=== PATIENT | female | born 1955 | race Caucasian/White ===

== ENCOUNTER 2019-11-30 11:00 | Outpatient (CLI) | payer OTHER, SELFPAY ==
--- NOTE | 2019-11-30 11:08 | ECG_ITS ---
Measurements Intervals [place] Rate: 67 P: 72 SD: 143 QRS: 35 QRSD: 93 T: 33 QT: 371 QTc: 394 Interpretive Statements SINUS RHYTHM WITH SINUS ARRHYTHMIA NORMAL ECG Electronically Signed On 11-30-2019 13:49:05 TECHNICAL OPERATIONS SPECIALIST by Yg Hardy D.O.
== END 2019-11-30 11:01 | disposition home or self-care (01) ==
LOC: ANHCARD 11:02
PROVIDERS: PCP Internal Medicine; Visit Provider Nurse Practitioner
DX: R07.9 Chest pain, unspecified (principal)
CPT/HCPCS: 93005

== ENCOUNTER 2019-12-09 10:11 | Outpatient (CLI) | payer OTHER, SELFPAY ==
--- NOTE | 2019-12-09 10:35 | EST_ITS ---
Patient Info Name: Georgina Sutton Age: 63 years : 1955 Gender: Female Ht: 66 in Wt: 197 lbs BSA: 2.07 m2 Exam Date: 12/09/2019 10:44 AM Exam Location: [facility] ([place] Stress Patient Status: Outpatient Admit Date: 12/09/2019 Staff Ordering Physician: Yareli Gallardo NP Attending Provider: Yareli Gallardo NP Exercise Technologist: Keyanna Rizzo CT Nurse: Dianna Henderson, ANP, ACNP- Exam Type: CA stress test treadmill Study Info Indications R07.9 - Chest pain, unspecified A treadmill exercise stress test was performed. Summary 1. [address] depression in inferolateral leads which persisted for several minutes into recovery which is consistent with ischemia. 2. No exercise-induced chest pain. 3. Hypertensive blood pressure response to exercise. 4. Decreased exercise tolerance. 5. 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 Protocol: [facility] Stress ECG Details Stage: REST Duration (min): 26 min : 41 sec Speed (mph): 0.0 Grade (%): 0 HR (bpm): 98 SBP (mmHg): 148 DBP (mmHg): 80 METS: --- Stage: STAGE 1 Duration (min): 1 min : 0 sec Speed (mph): 1.7 Grade (%): 10 HR (bpm): 109 SBP (mmHg): 148 DBP (mmHg): 80 METS: --- Stage: STAGE 1 Duration (min): 2 min : 0 sec Speed (mph): 1.7 Grade (%): 10 HR (bpm): 115 SBP (mmHg): 148 DBP (mmHg): 80 METS: --- Stage: STAGE 1 Duration (min): 3 min : 0 sec Speed (mph): 1.7 Grade (%): 10 HR (bpm): 121 SBP (mmHg): 196 DBP (mmHg): 75 METS: --- Stage: STAGE 2 Duration (min): 1 min : 0 sec Speed (mph): 2.5 Grade (%): 12 HR (bpm): 137 SBP (mmHg): 196 DBP (mmHg): 75 METS: --- Stage: STAGE 2 Duration (min): 2 min : 0 sec Speed (mph): 2.5 Grade (%): 12 HR (bpm): 147 SBP (mmHg): 197 DBP (mmHg): 78 METS: --- Stage: STAGE 2 Duration (min): 3 min : 0 sec Speed (mph): 2.5 Grade (%): 12 HR (bpm): 148 SBP (mmHg): 197 DBP (mmHg): 78 METS: --- Stage: STAGE 3 Duration (min): 0 min : 7 sec Speed (mph): 3.4 Grade (%): 14 HR (bpm): 146 SBP (mmHg): 197 DBP (mmHg): 78 METS: --- Stage: RECOVERY Duration (min): 0 min : 52 sec Speed (mph): 0.0 Grade (%): 0 HR (bpm): 137 SBP (mmHg): 199 DBP (mmHg): 58 METS: --- Stage: RECOVERY Duration (min): 1 min : 52 sec Speed (mph): 0.0 Grade (%): 0 HR (bpm): 115 SBP (mmHg): 199 DBP (mmHg): 58 METS: --- Stage: RECOVERY Duration (min): 2 min : 52 sec Speed (mph): 0.0 Grade (%): 0 HR (bpm): 101 SBP (mmHg): 178 DBP (mmHg): 73 METS: --- Stage: RECOVERY Duration (min): 3 min : 52 sec Speed (mph): 0.0 Grade (%): 0 HR (bpm): 97 SBP (mmHg): 178 DBP (mmHg): 73 METS: --- Stage: RECOVERY Duration (min): 4 min : 52
== END 2019-12-09 10:12 | disposition home or self-care (01) ==
PROVIDERS: PCP Internal Medicine; Visit Provider Nurse Practitioner
DX: R07.9 Chest pain, unspecified (principal)
CPT/HCPCS: 93017

== ENCOUNTER 2021-04-04 10:58 | Outpatient (CLI) | payer OTHER, SELFPAY ==
--- NOTE | ~2021-04-04 | XR_ITS ---
XR foot RT 2V DATE: 04/04/2021 11:25 INDICATION: Injury, pain, distal foot swelling, bruising TECHNIQUE: AP and lateral views COMPARISON: None FINDINGS: There is mild osteoarthritic arthritis at the first metatarsophalangeal joint. There is mild plantar and moderate posterior calcaneal enthesopathy. No fracture, dislocation, periosteal reaction or bone destruction. IMPRESSION: Calcaneal enthesopathy Mild osteoarthritis at first metatarsophalangeal joint Reviewed, dictated and finalized at location A.
== END 2021-04-04 10:59 | disposition home or self-care (01) ==
LOC: ANHIMG 11:02
PROVIDERS: PCP Internal Medicine; Visit Provider Nurse Practitioner
DX: M19.071 Primary osteoarthritis, right ankle and foot (principal)
CPT/HCPCS: 73620

== ENCOUNTER 2021-07-11 15:59 | Outpatient (CLI) | payer OTHER, SELFPAY ==
--- NOTE | ~2021-07-11 | CT_ITS ---
EXAMINATION: CT abdomen pelvis w con DATE: 07/11/2021 17:11 INDICATION: Abdominal pain TECHNIQUE: Computed tomography (CT) of the abdomen and pelvis was performed with 100 mL Omnipaque-350 intravenous contrast. Automated exposure control and iterative reconstruction technique were employe d. The dose-length product was 734.42 mGy-cm. COMPARISON: None FINDINGS: Mild emphysema at the lung bases. Heart size is normal. No pericardial or pleural effusion. Liver, ga llbladder, spleen, pancreas and bilateral adrenal glands are normal. Small bilateral low-attenuation renal cysts, the largest measuring 9 mm on the left. Bowels including the appendix are normal. Bladde r, anteverted uterus and bilateral adnexa are unremarkable. No free intraperitoneal gas or fluid. No pathologically enlarged abdominal or pelvic lymphadenopathy. Mild lumbar levocurvature with moderate spondylosis. IMPRESSION: 1. No acute intra-abdominal/pelvic process. Reviewed, dictated and finalized at location A.
== END 2021-07-11 16:00 | disposition home or self-care (01) ==
LOC: ANHIMG 16:04
PROVIDERS: PCP Internal Medicine; Visit Provider Clinical Nurse Specialist
DX: R10.9 Unspecified abdominal pain (principal)
CPT/HCPCS: 74177; Q9967

== ENCOUNTER 2021-07-28 07:58 | Outpatient (CLI) | payer OTHER, SELFPAY ==
--- NOTE | 2021-07-31 13:24 | WPDPFTINT ---
PFT Procedure Performed PFT Procedure Performed Spirometry with Pre/Post Bronchodilator Plethysmography (Lung Vol) Diffusing Cap (DLCO) Flow Vol Loop PFT Interpretation Lung volumes were measured with the body plethysmography method. The lung volumes are unremarkable. Spirometry showed normal FVC, normal FEV1, borderline normal FEV1 to FVC ratio of 68% and borderline diminished expiratory flow rates at 55% predicted. Following administration of a bronchodilator, there was no significant increase in the expiratory flow rates. Lung diffusion capacity is within the normal range. Impression: Probable small airway disease.
== END 2021-07-28 07:59 | disposition home or self-care (01) ==
PROVIDERS: PCP Internal Medicine; Visit Provider Clinical Nurse Specialist
DX: J43.9 Emphysema, unspecified (principal)
CPT/HCPCS: 94060; 94726; 94729

== ENCOUNTER 2022-04-09 11:28 | Outpatient (CLI) | payer OTHER, SELFPAY ==
--- NOTE | ~2022-04-09 | XR_ITS ---
XR ribs LT 2V w CXR 2V DATE: 04/09/2022 11:52 INDICATION: Anterior left rib pain. No injury. TECHNIQUE: PA and lateral chest. 3 views of the left ribs. COMPARISON: 04/17/2019 2 view chest FINDINGS: Diminished size of right breast silhouette and surgical clips, right axillary area, likely due to prior right partial mastectomy and axillary node dissection for breast cancer. Normal heart size. No hilar or mediastinal enlargement. No pulmonary infiltrate or consolidation, ple ural effusion or pulmonary vascular congestion or pneumothorax. Minimal dextroscoliosis of the thoracic spine. No left rib fracture or bone destruction is detected. IMPRESSION: Probable right partial mastectomy and axillary node dissection for breast cancer No active cardiopulmonary disease No fracture or bone destruction of the left ribs is evident Reviewed, dictated and finalized at location A.
== END 2022-04-09 11:29 | disposition home or self-care (01) ==
PROVIDERS: PCP Internal Medicine; Visit Provider Nurse Practitioner
DX: R07.81 Pleurodynia (principal)
CPT/HCPCS: 71046; 71100

== ENCOUNTER → 2022-10-30 13:42 | Outpatient (CLI) | payer OTHER, SELFPAY ==
--- NOTE | ~2022-10-30 | CT_ITS ---
EXAMINATION: CT abdomen pelvis wo con DATE: 10/30/2022 13:57 INDICATION: Renal stone. TECHNIQUE: Computed tomography (CT) of the abdomen and pelvis was performed without intravenous contr ast. Automated exposure control and iterative reconstruction technique were employed. The dose-length product was 579.92 mGy-cm. COMPARISON: CT abdomen and pelvis 07/11/2021 FINDINGS: The visualized portions of the lung bases demonstrate mild atelectasis. No pleural effusion . The heart size is normal. No pericardial effusion. The liver, gallbladder, spleen, pancreas, adrena l glands, and kidneys are normal. There is no urolithiasis. There are no dilated loops of bowel. The appendix is normal. There are no pathologically enlarged lymph nodes. There is no free intraperitonea l fluid. There is moderate lumbar spondylosis. IMPRESSION: 1. No urolithiasis. Reviewed, dictated and finalized at location A. 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 No urolithiasis.
== END ==
PROVIDERS: PCP Internal Medicine; Visit Provider Nurse Practitioner Family
DX: N20.0 Calculus of kidney (principal)
CPT/HCPCS: 74176

== ENCOUNTER 2023-05-30 01:15 | Day surgery (SDC) | payer OTHER, SELFPAY ==
[2023-05-17 15:02] VITALS: BMI 31.6
[2023-05-30 07:47] VITALS: BP 139/61; PULSE 66; RESP 17; TEMP 36.1; O2SAT 100; BMI 31.1
[2023-05-30] MEDS: LACTATED RINGERS 1,000 ML 150 ML IV CONT (07:57)
--- NOTE | 2023-05-30 08:21 | WPDANESEPPF ---
Anes - Initial Pre Proc Eval Procedure: Operation Date: 05/30/23 09:00 Proposed Procedures p Esophagogastroduodenoscopy - Jake Blanton MD Date/Time: 05/30/23 08:21 Surgeon: Jake Blanton MD Pre Op Diagnosis: GERD Patient Data Age: 67 Gender: F Height: 1.68 m Weight: 87.4 kg Last Vital Signs Temp 97 F L 05/30/23 07:47 Pulse 66 05/30/23 07:47 Resp 17 05/30/23 07:47 BP 139/61 05/30/23 07:47 Pulse Ox 100 05/30/23 07:47 O2 Del Method Room Air 05/30/23 07:47 Allergies Allergy/AdvReac Type Severity Reaction Status Date / Time banana Allergy Severe Anaphylactic Verified 05/30/23 07:45 Shock gluten Allergy Unknown Redness of Verified 05/30/23 07:45 Skin Sulfa (Sulfonamide Allergy Unknown Hives Verified 05/30/23 07:45 Antibiotics) Home Medications Medication Instructions Recorded Confirmed Type anastrozole 1 mg tablet 1 mg PO DAILY 11/27/19 05/30/23 History cholecalciferol (vitamin D3) 25 1,000 unit PO DAILY 11/27/19 05/30/23 History mcg (1,000 unit) capsule albuterol sulfate 90 mcg/actuation 2 puff inhalation Q4-6H PRN 12/13/22 05/30/23 Rx aerosol inhaler (Ventolin HFA) shortness of breath or wheezing #18 grams amlodipine 5 mg-benazepril 10 mg 1 cap PO DAILY #90 caps 12/13/22 05/30/23 Rx capsule aspirin 81 mg tablet,delayed 81 mg PO DAILY 12/13/22 05/30/23 History release (Adult Low Dose Aspirin) bempedoic acid 180 mg-ezetimibe 10 1 tablet PO DAILY 12/13/22 05/30/23 History mg tablet (Nexlizet) metoprolol tartrate 25 mg tablet 12.5 mg PO BID 12/13/22 05/30/23 History spironolactone 25 mg tablet 25 mg PO DAILY #90 tabs 12/13/22 05/30/23 Rx famotidine 20 mg tablet (Pepcid AC) 20 mg PO DAILY Indigestion 03/20/23 05/30/23 History Patient hx anesthesia problems: none Family hx anesthesia problems: none Results Review: All pre-operative results and documents have been reviewed as part of the pre-operative evaluation. [facility] Past Medical History Medical History Breast cancer CAD (coronary artery disease) HTN (hypertension) Melanoma Removed from face 05/2020 Surgical History Surgical History History of section History of lumpectomy History of nasal surgery septum surgery History of skin surgery melanoma removal of face 05/2020 History of tonsillectomy and adenoidectomy Family History Family History Sibling Malignant neoplasm of prostate Father Heart disease Glaucoma Emphysema lung Mother Hypertension Lung cancer Lung disease Sibling Glaucoma Social History Social History (Updated 12/13/22 @ 09:24 by Renata Mojica [facility]) Smoking status: Former smoker Tobacco type: cigarettes Smoking end date: 10/21/86 Alcohol intake: never Substance use type: does not use Lack of Transportation: No Lack of Food: Never True Current Housing: I Have Housing Concerned About Future Housing: No Difficulty Paying Gas/Electric Bills: No Difficulty Paying for Meds: No Currently Unemployed: No Education: Bachelor's Degree Difficulty w/ Childcare or Family Care: No Living arrangements: other Additional living arrangements comments: With Catalina Collins Final PreProcedure Day of Procedure 05/30/23 08:21 Patient weight: obese Heart: regular rate and rhythm Lungs: clear to auscultation Airway: Mallampati scale class II Neurological: alert and oriented Last oral intake: >/= 8 hours ASA classification: III Emergent: no Anesthetic plan: proceed Anesthesia type and monitoring: general GIVS and standard monitoring Results Review: All pre-operative results and documents have been reviewed as part of the pre-operative evaluation. Informed Consent: The patient's anesthetic plan and its attendant risks and benefi
--- NOTE | 2023-05-30 08:55 | PM.HPGS ---
History of Present Illness History of Present Illness Consent: Risks, benefits, and alternatives have been discussed and questions answered. Patient agrees to proceed with procedure. Chief complaint: GERD Narrative: Georgina Sutton is a 67 year old female with longstanding gerd using pepcid only as needed but lately noted dysphagia, also gluten sensitivity for which has been on gluten free diet for 9 years but no official diagnosis of celiac disease Review of Systems Constitutional: Constitutional: Denies headache(s) and Denies weakness Eyes: Eyes: Denies blurry vision ENT: Reports Normal hearing present, Denies headache(s) and Denies neck pain Cardiovascular: Cardiovascular: Denies chest pain and Denies dyspnea Respiratory: Respiratory: Denies dyspnea Gastrointestinal: Gastrointestinal: Reports no additional gastrointestinal complaints Genitourinary: Genitourinary: Denies dysuria Musculoskeletal: Musculoskeletal: Denies neck pain Integumentary/Breasts: Skin/Breast: Denies dry skin Neurologic: Reports Normal hearing present, Denies headache(s) and Denies weakness Psychiatric: Psychiatric: Denies anxiety Endocrine: Endocrine: Denies change in body appearance Hematologic/Lymphatic: Hematologic/Lymphatic: Denies easy bleeding Allergic/Immunologic: Allergic/Immunologic: Denies urticaria PMFSH Past Medical History Medical History (Updated 05/30/23 @ 08:56 by Jake Blanton MD) Breast cancer CAD (coronary artery disease) Dysphagia History of gluten sensitivity HTN (hypertension) Melanoma Removed from face 05/2020 Surgical History Surgical History History of section History of lumpectomy History of nasal surgery septum surgery History of skin surgery melanoma removal of face 05/2020 History of tonsillectomy and adenoidectomy Family History Family History Sibling Malignant neoplasm of prostate Father Heart disease Glaucoma Emphysema lung Mother Hypertension Lung cancer Lung disease Sibling Glaucoma Social History Social History (Updated 12/13/22 @ 09:24 by Renata Mojica CMA) Smoking status: Former smoker Tobacco type: cigarettes Smoking end date: 10/21/86 Alcohol intake: never Substance use type: does not use Lack of Transportation: No Lack of Food: Never True Current Housing: I Have Housing Concerned About Future Housing: No Difficulty Paying Gas/Electric Bills: No Difficulty Paying for Meds: No Currently Unemployed: No Education: Bachelor's Degree Difficulty w/ Childcare or Family Care: No Living arrangements: other Additional living arrangements comments: With Meds Home Medications and Allergies Home Medications Medication Instructions Recorded Confirmed Type anastrozole 1 mg tablet 1 mg PO DAILY 11/27/19 05/30/23 History cholecalciferol (vitamin D3) 25 1,000 unit PO DAILY 11/27/19 05/30/23 History mcg (1,000 unit) capsule albuterol sulfate 90 mcg/actuation 2 puff inhalation Q4-6H PRN 12/13/22 05/30/23 Rx aerosol inhaler (Ventolin HFA) shortness of breath or wheezing #18 grams amlodipine 5 mg-benazepril 10 mg 1 cap PO DAILY #90 caps 12/13/22 05/30/23 Rx capsule aspirin 81 mg tablet,delayed 81 mg PO DAILY 12/13/22 05/30/23 History release (Adult Low Dose Aspirin) bempedoic acid 180 mg-ezetimibe 10 1 tablet PO DAILY 12/13/22 05/30/23 History mg tablet (Nexlizet) metoprolol tartrate 25 mg tablet 12.5 mg PO BID 12/13/22 05/30/23 History spironolactone 25 mg tablet 25 mg PO DAILY #90 tabs 12/13/22 05/30/23 Rx famotidine 20 mg tablet (Pepcid AC) 20 mg PO DAILY Indigestion 03/20/23 05/30/23 History Allergies Allergy/AdvReac Type Severity Reaction Status Date / Time banana Allergy Severe Anaphylactic Verified 05/30/23 07:45 Shock gluten Allergy Unknown Redness of Verifi
[2023-05-30 09:12] VITALS: BP 138/59; PULSE 60; RESP 25; O2SAT 100
[2023-05-30 09:22] VITALS: BP 125/64; PULSE 54; RESP 20; O2SAT 100
[2023-05-30 09:32] VITALS: BP 130/58; PULSE 52; RESP 21; O2SAT 99
== END 2023-05-30 09:40 | disposition home or self-care (01) ==
PROVIDERS: PCP Internal Medicine; Visit Provider Internal Medicine Gastroenterology
PROC: 0DJ08ZZ Inspection of Upper Intestinal Tract, Via Natural or Artificial Opening Endoscopic (ICD-10-PCS; CPT 43235; principal; 2023-05-30 09:00)
DX: K21.9 Gastro-esophageal reflux disease without esophagitis (principal); K22.2 Esophageal obstruction; I25.10 Atherosclerotic heart disease of native coronary artery without angina pectoris; I10 Essential (primary) hypertension; K29.70 Gastritis, unspecified, without bleeding; Z85.3 Personal history of malignant neoplasm of breast; Z80.1 Family history of malignant neoplasm of trachea, bronchus and lung; Z80.42 Family history of malignant neoplasm of prostate; Z87.891 Personal history of nicotine dependence; Z79.811 Long term (current) use of aromatase inhibitors; Z79.51 Long term (current) use of inhaled steroids; Z79.82 Long term (current) use of aspirin; E66.9 Obesity, unspecified; Z68.31 Body mass index [BMI] 31.0-31.9, adult
CPT/HCPCS: 43239; 43249; 88305; J2704; J7120